=== PATIENT | female | born 1965 | race Caucasian/White ===

== ENCOUNTER 2016-10-20 20:30 | Emergency (ER) | payer OTHER ==
[~2016-10-20] VITALS: Ht 165.1 cm; Wt 90.7 kg
[~2016-10-20 20:30] MED LIST: ALBU2.5V14 NEB; ALBU8.5H6 INH; ALPR0.254 PO; ATROVENT HFA12.9 GM IH; BUDE10.2 IH; CETI10TA22 PO; ESOM40CA PO; FLUT1DIS5 IH; GABA-585 PO; GABA-586 PO; LEVO50TA PO; LINA145C PO; MOME17SP NS; MONT10TA6 PO; POLY17PO29 PO; nexium; singulair; synthroid; zyrtec
[2016-10-20 21:32] LABS: BILIRUBIN,URINE NEGATIVE (NEG); GLUCOSE,URINE NEGATIVE (NEG); NITRITE,URINE NEGATIVE (NEG); PROTEIN,URINE NEGATIVE (NEG-TRACE); UROBILINOGEN,URINE 0.2 mg/dL (0.2 mg/dL)
[2016-10-20 21:36] LABS: BASO % 0 % (0-3); EOS % 1 % (0-3); HEMATOCRIT 40.1 % (36.0-47.0); HEMOGLOBIN 13.7 g/dL (12.0-15.5); LYMPH # 1.8 x10^3/uL (1.0-4.8); LYMPH % 28 % (24-48); MEAN CORPUSCULAR HEMOGLOBIN 31 pg (25-35); MEAN CORPUSCULAR HGB CONC 34 g/dL (31-37); MEAN CORPUSCULAR VOLUME 92 fL (79-100); MONO % 8 % (0-9); NEUT % 62 % (31-73); PLATELET COUNT 269 x10^3/uL (140-400); RED BLOOD COUNT 4.37 x10^6/uL (3.50-5.40); RED CELL DISTRIBUTION WIDTH 12.8 % (11.5-14.5); WHITE BLOOD COUNT 6.4 x10^3/uL (4.0-11.0)
[2016-10-20 21:37] LABS: RBC,URINE 0 /HPF (0-2)
[2016-10-20 21:38] LABS: BACTERIA,URINE FEW /HPF (0-FEW); NEG OBC UR NEG; POS OBC UR POS; SQUAMOUS EPITHELIAL CELL,UR MOD /LPF; WBC,URINE 0 /HPF (0-4)
[2016-10-20] MEDS ORDERED: ONDANSETRON PF 4 MG/2 ML VIAL. IV ONE (21:45)
[2016-10-20] MEDS ORDERED: IV NORMAL SALINE 500ML BAG 500 ML IV ONE (21:45)
[2016-10-20 21:50] LABS: CALCIUM 9.3 mg/dL (8.5-10.1); GFR 58.9; POTASSIUM 3.7 mmol/L (3.5-5.1)
[2016-10-20 21:56] LABS: ALBUMIN 3.9 g/dL (3.4-5.0); TOTAL BILIRUBIN 0.3 mg/dL (0.2-1.0); TOTAL PROTEIN 7.8 g/dL (6.4-8.2)
[2016-10-20] MEDS ORDERED: IOHEXOL 300 MG/ML 75 ML VIAL IV ONE (22:00)
[2016-10-20] MEDS ORDERED: CONTRAST GIVEN MC PRN (22:15)
[2016-10-20] MEDS: MORPHINE SULFATE 4 MG/ML DISP.SYRIN. IV/SQ PRN ×2 (22:39→23:46)
--- NOTE | 2016-10-20 22:44 | RAD ---
CT abdomen and pelvis with contrast. TECHNIQUE: Helical CT imaging of the abdomen and pelvis was acquired with 60 mL Omnipaque 350 venous contrast. HISTORY: Upper abdominal pain. Prior appendectomy. Abdomen findings: Left lower lobe calcified granuloma. 6 mm left lower lobe pulmonary nodule image 7. Cholecystectomy. Several nonspecific subcentimeter hypodense liver lesions are present as well as larger lesions at the posterior right hepatic lobe segment 6 measuring 1.5 cm and superior hepatic lobe segment 8 measuring 1.1 cm which may be cysts given densities of under 20 units. Kidneys, adrenals, spleen, pancreas are unremarkable. Descending and sigmoid colon diverticulosis. A structure which appears to be the appendix is present and demonstrates no dilation or inflammation. No bowel obstruction or inflammation. No abdominal fluid or adenopathy. Bones unremarkable. Pelvis findings: Hysterectomy. Right ovary absent or atrophic. Left ovary demonstrates hypodense foci possibly cystic lesions largest anteriorly adjacent of the external vessels measures 3.2 cm. Bladder, rectum and bones are unremarkable. No pelvic fluid or adenopathy. IMPRESSION: 1. No acute process. 2. Left ovarian hypodensities largest measuring 3.2 cm could be follicles or cysts. This could be further characterized by sonography. 3. Liver hypodense lesions largest measuring 1.5 cm. These are indeterminate by CT imaging, may represent cysts. Correlation with outpatient sonography may be of benefit. 4. 6 mm left lower lobe pulmonary nodule. Follow-up CT imaging in 6-12 months may be of benefit per Fleischner Society 2017 guidelines. Exposure: One or more of the following individualized dose reduction techniques were utilized for this examination: 1. Automated exposure control 2. Adjustment of the mA and/or kV according to patient size 3. Use of iterative reconstruction technique Electronically signed by: El Elaine MD (10/20/2016 10:41 PM) [facility]
--- NOTE | 2016-10-21 00:31 | PHYS DOC ---
Past Medical History Past Medical History: Asthma, Constipation, Diverticulosis, Fibromyalgia, Migraines, Other Additional Past Medical Histor: ESPH SPASMS, gastroparesis, hiatial hernia, migraines Past Surgical History: Appendectomy, Cholecystectomy, Hysterectomy, Tubal ligation, Other Additional Past Surgical Histo: knee and shoulder surgery,ovarian cyst removal, sinal surgery,esophageal dil Alcohol Use: None Drug Use: None Adult General Chief Complaint Chief Complaint: FLANK PAIN HPI HPI Patient is a 51 year old female who presents with abdominal pain. Patient reports 4 day history of left lower quadrant pain now more severe in the left upper quadrant. She reports distention, increased gas, nausea without vomiting. Denies fevers or chills, hematemesis, diarrhea or constipation, hematochezia or melena, dysuria or hematuria, vaginal bleeding or discharge. Denies previous history of similar symptoms. History of gastroparesis, diverticulosis, hiatal hernia, esophageal spasms. She has undergone appendectomy, cholecystectomy, hysterectomy. [place] Seen by a nurse practitioner 2 days ago and given Flexeril for suspected muscle spasm, not improving. Review of Systems Review of Systems Constitutional: Denies fever or chills Eyes: Denies change in visual acuity HENT: Denies nasal congestion or sore throat Respiratory: Denies cough or shortness of breath Cardiovascular: Denies chest pain or edema GI: Reports abdominal pain, nausea, denies vomiting, bloody stools or diarrhea : Denies dysuria or hematuria Musculoskeletal: Denies back pain or joint pain Integument: Denies rash or skin lesions Neurologic: Denies headache, focal weakness or sensory changes Current Medications Current Medications Current Medications Medications (Trade) Dose Ordered Sig/Boogie Start Time Stop Time Status Last Admin Dose Admin Info (Do NOT chart on this entry -- for MONITORING) 1 each PRN DAILY PRN 10/20/16 22:15 10/21/16 02:13 DC Iohexol (Omnipaque 300 Mg/ml) 60 ml 1X ONCE 10/20/16 22:00 10/20/16 22:01 DC 10/20/16 22:10 60 ML Morphine Sulfate 4 mg PRN Q15MIN PRN 10/20/16 21:45 10/21/16 02:13 DC 10/20/16 23:46 4 MG Ondansetron HCl (Zofran) 4 mg 1X ONCE 10/20/16 21:45 10/20/16 21:46 DC 10/20/16 21:45 4 MG Sodium Chloride 500 ml @ 0 mls/hr 1X ONCE 10/20/16 21:45 10/20/16 21:46 DC 10/20/16 21:45 500 MLS/HR Allergies Allergies Allergies Coded Allergies Type Severity Reaction Last Updated Verified lisinopril Allergy Severe Anaphylaxis 04/02/13 Yes Penicillins Allergy Intermediate Rash 04/02/13 Yes tramadol Allergy Mild HYPERTENSION 04/02/13 Yes Physical Exam Physical Exam Constitutional: Obese, no acute distress, non-toxic appearance. HENT: Normocephalic, atraumatic, bilateral external ears normal, oropharynx moist, nose normal. Eyes: PERRLA, EOMI, conjunctiva normal, no discharge. Neck: supple, no stridor. Cardiovascular: RRR, no murmurs, no edema. Lungs & Thorax: LCTAB, no wheezing, no respiratory distress. Abdomen: soft, left upper quadrant tenderness without rebound or guarding, mild left lower quadrant tenderness without rebound or guarding, no right upper quadrant or right lower quadrant tenderness, no masses or pulsatile masses, nondistended. Skin: Warm, dry, no erythema, no rash. Back: No CVA tenderness. Extremities: No tenderness, no edema. Neurologic: Alert and oriented X 3, no focal deficits noted. Psychologic: Affect normal, judgement normal, mood normal. Current Patient Data Vital Signs Vital Signs Date Time Temp Pulse Resp B/P (MAP) Pulse Ox O2 Delivery O2 Flow Rate FiO2 10/21/16 01:41 82 130/74 (92) 96 Room Air 10/21/16 01:11 23 10/20/16 20:40 97.9 97.9 Lab Values Laboratory Tests Test 10/20/16 20:32 10/20/16 21:10 10/20/16 21:20 POC Urine HCG, Qualitative Hcg negative (Negative) White Blood Count 6.4 x10^3/uL (4.0-11.0) Red Blood Count 4.37 x10^6/uL (3.50-5.40) Hemoglobin 13.7 g/dL (12.0-15.5) Hematocrit 40.1 % (36.0-47.0) Mean Corpuscular Volume 92 fL (79-100) Mean Corpuscular Hemoglobin 31 pg (25-35) Mean Corpuscular Hemoglobin Concent 34 g/dL (31-37) Red Cell Distribution Width 12.8 % (11.5-14.5) Platelet Count 269 x10^3/uL (140-400) Neutrophils (%) (Auto) 62 % (31-73) Lymphocytes (%) (Auto) 28 % (24-48) Monocytes (%) (Auto) 8 % (0-9) Eosinophils (%) (Auto) 1 % (0-3) Basophils (%) (Auto) 0 % (0-3) Neutrophils # (Auto) 4.0 x10^3uL (1.8-7.7) Lymphocytes # (Auto) 1.8 x10^3/uL (1.0-4.8) Monocytes # (Auto) 0.5 x10^3/uL (0.0-1.1) Eosinophils # (Auto) 0.1 x10^3/uL (0.0-0.7) Basophils # (Auto) 0.0 x10^3/uL (0.0-0.2) Sodium Level 139 mmol/L (136-145) Potassium Level 3.7 mmol/L (3.5-5.1) Chloride Level 103 mmol/L (98-107) Carbon Dioxide Level 30 mmol/L (21-32) Anion Gap 6 (6-14) Blood Urea Nitrogen 8 mg/dL (7-20) Creatinine 1.0 mg/dL (0.6-1.0) Estimated GFR (Cockcroft-Gault) 58.9 BUN/Creatinine Ratio 8 (6-20) Glucose Level 93 mg/dL (70-99) Calcium Level 9.3 mg/dL (8.5-10.1) Total Bilirubin 0.3 mg/dL (0.2-1.0) Aspartate Amino Transferase (AST) 19 U/L (15-37) Alanine Aminotransferase (ALT) 20 U/L (14-59) Alkaline Phosphatase 91 U/L (46-116) Troponin I Quantitative < 0.017 ng/mL (0.000-0.055) Total Protein 7.8 g/dL (6.4-8.2) Albumin 3.9 g/dL (3.4-5.0) Albumin/Globulin Ratio 1.0 (1.0-1.7) Lipase 128 U/L (73-393) Urine Collection Type Unknown Urine Color Straw Urine Clarity Clear Urine pH 7.0 Urine Specific [place] <=1.005 Urine Protein Negative mg/dL (NEG-TRACE) Urine Glucose (UA) Negative mg/dL (NEG) Urine Ketones (Stick) Negative mg/dL (NEG) Urine Blood Negative (NEG) Urine Nitrite Negative (NEG) Urine Bilirubin Negative (NEG) Urine Urobilinogen Dipstick 0.2 mg/dL (0.2 mg/dL) Urine Leukocyte Esterase Negative (NEG) Urine RBC 0 /HPF (0-2) Urine WBC 0 /HPF (0-4) Urine Squamous Epithelial Cells Mod /LPF Urine Bacteria Few /HPF (0-FEW) Urine Test Negative (NEG) Laboratory Tests 10/20/16 21:10 Laboratory Tests 10/20/16 21:10 EKG EKG Interpreted by me: Normal sinus rhythm rate 82, no acute ST or T wave changes, normal intervals, no ectopy. [] Radiology/Procedures Radiology/Procedures PROCEDURE: PELVIS W/TV Pelvic ultrasound HISTORY: Left pelvic pain, abnormal CT with left adnexal lesions. TECHNIQUE: Transabdominal and transvaginal transducers with grayscale and duplex Doppler sonography were utilized. FINDINGS: Transabdominal imaging of trace hysterectomy. Ovaries not visualized transabdominal. Transvaginal imaging demonstrates hysterectomy. No pelvic fluid documented. Right ovary not visualized may be obscured by bowel gas shadowing or surgically absent. Structure labeled left ovary measured as 2.6 x 2.2 x 2.2 cm demonstrating a 1.9 cm unilocular cyst with a thin internal septation. Intact left ovarian blood flow documented. The exophytic possible cystic lesion adjacent of the left ovary on prior CT imaging is not documented sonographically. IMPRESSION: Hysterectomy. Right ovary not visualized. Left ovary demonstrates a 1.9 cm cyst with single thin internal septation may be a follicular cyst or chronic hemorrhagic cyst. The possible paraovarian 3 cm hypodense lesion on prior CT imaging is not evident sonographically could be obscured by bowel gas shadowing from adjacent bowel loops. Electronically signed by: El Elaine MD (10/21/2016 1:49 AM) [facility] DICTATED and SIGNED BY: EL ELAINE MD DATE: 10/21/16 0146 PROCEDURE: CT ABD PELV W/ IV CONTRST ONLY CT abdomen and pelvis with contrast. TECHNIQUE: Helical CT imaging of the abdomen and pelvis was acquired with 60 mL Omnipaque 350 venous contrast. HISTORY: Upper abdominal pain. Prior appendectomy. Abdomen findings: Left lower lobe calcified granuloma. 6 mm left lower lobe pulmonary nodule image 7. Cholecystectomy. Several nonspecific subcentimeter hypodense liver lesions are present as well as larger lesions at the posterior right hepatic lobe segment 6 measuring 1.5 cm and superior hepatic lobe segment 8 measuring 1.1 cm which may be cysts given densities of under 20 units. Kidneys, adrenals, spleen, pancreas are unremarkable. Descending and sigmoid colon diverticulosis. A structure which appears to be the appendix is present and demonstrates no dilation or inflammation. No bowel obstruction or inflammation. No abdominal fluid or adenopathy. Bones unremarkable. Pelvis findings: Hysterectomy. Right ovary absent or atrophic. Left ovary demonstrates hypodense foci possibly cystic lesions largest anteriorly adjacent of the external vessels measures 3.2 cm. Bladder, rectum and bones are unremarkable. No pelvic fluid or adenopathy. IMPRESSION: 1. No acute process. 2. Left ovarian hypodensities largest measuring 3.2 cm could be follicles or cysts. This could be further characterized by sonography. 3. Liver hypodense lesions largest measuring 1.5 cm. These are indeterminate by CT imaging, may represent cysts. Correlation with outpatient sonography may be of benefit. 4. 6 mm left lower lobe pulmonary nodule. Follow-up CT imaging in 6-12 months may be of benefit per Fleischner Society 2017 guidelines. Exposure: One or more of the following individualized dose reduction techniques were utilized for this examination: 1. Automated exposure control 2. Adjustment of the mA and/or kV according to patient size 3. Use of iterative reconstruction technique Electronically signed by: El Elaine MD (10/20/2016 10:41 PM) [facility] DICTATED and SIGNED BY: EL ELAINE MD DATE: 10/20/162219[] Course & Med Decision Making Course & Med Decision Making Pertinent Labs and Imaging studies reviewed. (See chart for details) the patient visits with abdominal pain. Gave IV fluids, pain medication, antiemetics. No significant abnormality on labs. CT shows ovarian cyst. Discussed other abnormal findings with the patient. Obtained ultrasound which shows no evidence of ovarian torsion. Recommend rest, by mouth hydration, Zofran , Calera for severe pain. Follow-up with primary care physician in 2-3 days. Return to the emergency department for high fever, severe pain, uncontrolled vomiting, any otherwise worsening condition. Discharged home in stable and improved condition. Dragon Disclaimer Dragon Disclaimer This electronic medical record was generated, in whole or in part, using a voice recognition dictation system. Departure Departure Impression: Primary Impression: Abdominal pain Additional Impression: Ovarian cyst Disposition: HOME, SELF-CARE Condition: STABLE Referrals: NO PCP (PCP) Patient Instructions: Abdominal Pain, [id number], Ovarian Cyst, [id number] Additional Instructions: You were seen in the emergency department today for abdominal pain. You had an ovarian cyst which could be the cause of your pain. There were other abnormal findings on the CT including spots on the liver and a lung nodule. It is important to follow-up with her primary care doctor for further testing. Please drink fluids to stay hydrated, take Calera for severe pain, use Zofran for nausea. Follow-up with primary care physician in 2-3 days. Return to the emergency department for high fever, severe pain, uncontrolled vomiting, any otherwise worsening condition. Scripts Ondansetron (ZOFRAN ODT) 4 Mg Tab.rapdis 1 TAB SL Q8HRS, #10 TAB Prov: IRINEO ALEXANDER MD 10/21/16 Hydrocodone/Apap 5-325 (NORCO 5-325 TABLET) 1 Each Tablet 1 TAB PO PRN Q6HRS Y for PAIN, #10 TAB 0 Refills Prov: IRINEO ALEXANDER MD 10/21/16 Problem Qualifiers IRINEO ALEXANDER MD Oct 21, 2016 00:30
[2016-10-21] MEDS ORDERED: ONDA4TAB10 SL (01:04)
[2016-10-21] MEDS ORDERED: HYDR-971 PO (01:04)
[2016-10-21 01:41] VITALS: BP 130/74
--- NOTE | 2016-10-21 01:52 | RAD ---
Pelvic ultrasound HISTORY: Left pelvic pain, abnormal CT with left adnexal lesions. TECHNIQUE: Transabdominal and transvaginal transducers with grayscale and duplex Doppler sonography were utilized. FINDINGS: Transabdominal imaging of trace hysterectomy. Ovaries not visualized transabdominal. Transvaginal imaging demonstrates hysterectomy. No pelvic fluid documented. Right ovary not visualized may be obscured by bowel gas shadowing or surgically absent. Structure labeled left ovary measured as 2.6 x 2.2 x 2.2 cm demonstrating a 1.9 cm unilocular cyst with a thin internal septation. Intact left ovarian blood flow documented. The exophytic possible cystic lesion adjacent of the left ovary on prior CT imaging is not documented sonographically. IMPRESSION: Hysterectomy. Right ovary not visualized. Left ovary demonstrates a 1.9 cm cyst with single thin internal septation may be a follicular cyst or chronic hemorrhagic cyst. The possible paraovarian 3 cm hypodense lesion on prior CT imaging is not evident sonographically could be obscured by bowel gas shadowing from adjacent bowel loops. Electronically signed by: El Elaine MD (10/21/2016 1:49 AM) [facility]
--- NOTE | 2016-10-21 06:37 | EKG ---
[facility] [address] [place] [address] Test Date: 2016-10-20 Test Time: 22:16:36 Pat Name: NISHI SILVA Department: Room: Gender: F Reference Assistant: : 1965 Requested By: IRINEO ALEXANDER Order Number: [id number] Reading MD: Bienvenido Borrero Measurements Intervals [place] Rate: 82 P: 68 VA: 198 QRS: 72 QRSD: 80 T: 51 QT: 372 QTc: 438 Interpretive Statements SINUS RHYTHM QRS(T) CONTOUR ABNORMALITY CONSIDER ANTEROLATERAL MYOCARDIAL DAMAGE RI6.01 Unconfirmed report Compared to ECG 12/05/2015 10:43:19 No significant changes Electronically Signed On 10-21-2016 17:40:24 CDT by Bienvenido Borrero
[2016-10-22] MEDS ORDERED: IBUP-1027 PO (16:14)
[2016-10-22] MEDS ORDERED: TOPI25TA52 PO (16:14)
== END 2016-10-21 02:12 | disposition home or self-care (01) ==
LOC: ER 20:30
DX: N83.201 Unspecified ovarian cyst, right side (principal); J45.909 Unspecified asthma, uncomplicated; G43.909 Migraine, unspecified, not intractable, without status migrainosus; M79.7 Fibromyalgia; Z98.51 Tubal ligation status; Z90.49 Acquired absence of other specified parts of digestive tract; Z90.710 Acquired absence of both cervix and uterus; Z88.0 Allergy status to penicillin; Z88.6 Allergy status to analgesic agent; Z88.8 Allergy status to other drugs, medicaments and biological substances
CPT/HCPCS: 36415; 74177; 76830; 76856; 80053; 81001; 81025; 83690; 84484; 85027; 93005; 96361; 96374; 96375; 96376; 99285; J2270; J2405; J7040; Q9967

== ENCOUNTER 2020-02-17 05:02 | Emergency (ER) | payer OTHER ==
[~2020-02-17] VITALS: Ht 165.1 cm; Wt 97.7 kg
[~2020-02-17 05:02] MED LIST changes: -CETI10TA22 PO; +CETI10TA74 PO; -GABA-586 PO; +GABA300C18 PO; +HYDR-3164 PO; +IBUP-1027 PO; -LINA145C PO; +LINZESS145 MCG PO; +MONT10TA49 PO; -MONT10TA6 PO; +ONDA4TAB10 SL; +TOPI25TA52 PO
[2020-02-17] MEDS ORDERED: ASPIRIN CHEWABLE 81 MG TABLET. PO ONE (05:30)
[2020-02-17 05:36] LABS: BASO % 1 % (0-3); EOS # 0.1 x10^3/uL (0.0-0.7); EOS % 1 % (0-3); HEMATOCRIT 39.6 % (36.0-47.0); HEMOGLOBIN 13.7 g/dL (12.0-15.5); LYMPH % 30 % (24-48); MEAN CORPUSCULAR HEMOGLOBIN 32 pg (25-35); MEAN CORPUSCULAR HGB CONC 35 g/dL (31-37); MEAN CORPUSCULAR VOLUME 91 fL (79-100); MONO # 0.5 x10^3/uL (0.0-1.1); MONO % 8 % (0-9); NEUT # 3.8 x10^3/uL (1.8-7.7); NEUT % 60 % (31-73); PLATELET COUNT 250 x10^3/uL (140-400); RED BLOOD COUNT 4.36 x10^6/uL (3.50-5.40); RED CELL DISTRIBUTION WIDTH 12.3 % (11.5-14.5); WHITE BLOOD COUNT 6.4 x10^3/uL (4.0-11.0)
--- NOTE | 2020-02-17 05:45 | RAD ---
EXAMINATION: CHEST AP ONLY CLINICAL HISTORY: Chest pain, palpitations EXAM DATE/TIME: 02/17/2020 5:23 AM COMPARISON: None FINDINGS: Lines, Tubes, and Devices: None. Cardiomediastinal Silhouette: Within normal limits. Lungs and Pleura: No evidence of focal airspace consolidation or pleural effusion. Pulmonary vasculature unremarkable. Bones and Soft Tissues: No acute osseous abnormality. IMPRESSION: No evidence of acute cardiopulmonary abnormality. Electronically signed by: Luis Angel Griffiths DO (02/17/2020 5:42 AM) [facility]
[2020-02-17 05:47] LABS: CALCIUM 9.3 mg/dL (8.5-10.1); CREATININE 1.1 mg/dL (0.6-1.0); GFR 52.2; POTASSIUM 3.7 mmol/L (3.5-5.1)
--- NOTE | 2020-02-17 05:48 | PHYS DOC ---
Past Medical History Past Medical History: Asthma, Constipation, Diverticulosis, Fibromyalgia, Migraines, Other Additional Past Medical Histor: ESPH SPASMS, gastroparesis, hiatial hernia, migraines (JOSTIN PFEIFFER DO) Past Surgical History: Cholecystectomy, Hysterectomy, Tubal ligation, Other Additional Past Surgical Histo: knee and shoulder surgery,ovarian cyst removal,sinal surgery,esophageal dil (JOSTIN PFEIFFER DO) Smoking Status: Never Smoker Alcohol Use: None Drug Use: None (JOSTIN PFEIFFER DO) General Adult EDM: Chief Complaint: CHEST PAIN-CARDIAC NATURE HPI: HPI: Patient is a 54 year [id number] female past medical history asthma hypothyroid PVCs presents with a chief complaint of chest pain. Patient states chest pain woke her up from her sleep approximately 2 to 3 hours ago. She describes the pain as a squeezing tightness sensation that had some radiation down her left arm. Patient states pain comes and goes. Patient states she has had associated belching but denies any nausea vomiting diaphoresis or shortness of breath. Patient does have history of PVCs which is associated with chest discomfort. Patient has evaluated by cardiology and was placed on metoprolol for her palpitations. Patient states metoprolol it usually resolves her chest discomfort. This a.m. patient took her metoprolol states she had no relief. She states this chest discomfort is different than her PVC chest pain. EKG performed shows sinus rhythm. (JOSTIN PFEIFFER DO) Review of Systems: Review of Systems: Constitutional: Denies fever or chills. [] Eyes: Denies change in visual acuity. [] HENT: Denies nasal congestion or sore throat. [] Respiratory: Denies cough or shortness of breath. [] Cardiovascular: positive chest pain GI: Denies abdominal pain, nausea, vomiting, bloody stools or diarrhea. [] : Denies dysuria. [] Musculoskeletal: Denies back pain or joint pain. [] Integument: Denies rash. [] Neurologic: Denies headache, focal weakness or sensory changes. [] Endocrine: Denies polyuria or polydipsia. [] Lymphatic: Denies swollen glands. [] Psychiatric: Denies depression or anxiety. [] (JOSTIN PFEIFFER DO) Heart Score: HEART Score for Chest Pain: HEART Score for Chest Pain Response (Comments) Value History Moderately Suspicious 1 ECG Normal 0 Age >45 - < 65 1 Risk Factors No Risk Factors 0 Troponin < Normal Limit 0 Total 2 Risk Factors: Risk Factors: DM, Current or recent (<one month) smoker, HTN, HLP, family history of CAD, obesity. Risk Scores: Score 0 - 3: 2.5% MACE over next 6 weeks - Discharge Home Score 4 - 6: 20.3% MACE over next 6 weeks - Admit for Clinical Observation Score 7 - 10: 72.7% MACE over next 6 weeks - Early Invasive Strategies (JOSTIN PFEIFFER DO) Current Medications: Current Medications Medications (Trade) Dose Ordered Sig/Boogie Start Time Stop Time Status Last Admin Dose Admin Aspirin (Aspirin Chewable) 324 mg 1X ONCE 02/17/20 05:30 02/17/20 05:31 DC (JOSTIN PFEIFFER DO) Allergies: Allergies: Allergies Coded Allergies Type Severity Reaction Last Updated Verified lisinopril Allergy Severe Anaphylaxis 04/02/13 Yes Penicillins Allergy Intermediate Rash 04/02/13 Yes Sulfa (Sulfonamide Antibiotics) Allergy Intermediate 02/17/20 Yes tramadol Allergy Mild HYPERTENSION 04/02/13 Yes (JOSTIN PFEIFFER DO) Physical Exam: PE: General: alert, no acute distress. Skin: warm, dry and intact. Head:: Normocephalic, atraumatic. Neck: Trachea midline. Eyes: EOMI, Normal conjunctiva, No drainage CARDIOVASCULAR: Regular rate and rhythm RESPIRATORY: No respiratory distress Back: Full range of motion. MUSCULOSKELETAL: Full range of motion of bilateral upper and lower extremities. GASTROINTESTINAL: Abdomen soft without rebound or guarding. NEUROLOGICAL: Alert and noted to person, place and time. No neurological deficits observed Psychiatric: Cooperative. Normal judgment (JOSTIN PFEIFFER DO) Current Patient Data: Labs: Laboratory Tests Test 02/17/20 05:21 White Blood Count 6.4 x10^3/uL (4.0-11.0) Red Blood Count 4.36 x10^6/uL (3.50-5.40) Hemoglobin 13.7 g/dL (12.0-15.5) Hematocrit 39.6 % (36.0-47.0) Mean Corpuscular Volume 91 fL (79-100) Mean Corpuscular Hemoglobin 32 pg (25-35) Mean Corpuscular Hemoglobin Concent 35 g/dL (31-37) Red Cell Distribution Width 12.3 % (11.5-14.5) Platelet Count 250 x10^3/uL (140-400) Neutrophils (%) (Auto) 60 % (31-73) Lymphocytes (%) (Auto) 30 % (24-48) Monocytes (%) (Auto) 8 % (0-9) Eosinophils (%) (Auto) 1 % (0-3) Basophils (%) (Auto) 1 % (0-3) Neutrophils # (Auto) 3.8 x10^3/uL (1.8-7.7) Lymphocytes # (Auto) 2.0 x10^3/uL (1.0-4.8) Monocytes # (Auto) 0.5 x10^3/uL (0.0-1.1) Eosinophils # (Auto) 0.1 x10^3/uL (0.0-0.7) Basophils # (Auto) 0.0 x10^3/uL (0.0-0.2) Laboratory Tests 02/17/20 05:21 (JOSTIN PFEIFFER DO) EKG: EKG: EKG 0506 heart rate 68 normal sinus rhythm no ST elevation no ST depression no acute PR No acute change when compared to previous [] (JOSTIN PFEIFFER DO) Radiology/Procedures: Radiology/Procedures: [] Impression: FINDINGS: Lines, Tubes, and Devices: None. Cardiomediastinal Silhouette: Within normal limits. Lungs and Pleura: No evidence of focal airspace consolidation or pleural effusion. Pulmonary vasculature unremarkable. Bones and Soft Tissues: No acute osseous abnormality. IMPRESSION: No evidence of acute cardiopulmonary abnormality. Electronically signed by: Luis Angel Griffiths DO (02/17/2020 5:42 AM) [facility] (JOSTIN PFEIFFER DO) Course & Med Decision Making: Course & Med Decision Making Pertinent Labs and Imaging studies reviewed. (See chart for details) [] Patient was evaluated for chief complaint. Work-up consisted of laboratory analysis radiologic imaging and EKG. Results reviewed and discussed with patient. EKG without acute ischemic changes. Chest x-ray within normal limits. Initial trop normal. Treatment with aspirin and nitroglycerin at 0600hrs. Patient with a heart score of 2. Discussed hospitalization verse discharge home after repeat trop-- if pain improved post treatment. Patient would like to discuss options with . Discussed benefits of hospitalization- risks of discharge home. 0620hrs- Patient and --- would like repeat troponin which has been ordered for 0800hrs. Decision for admission vs discharge at that time. Patient signed out to Dr Gutierrez @ 0620hrs pending Re-evaluation, repeat trop, and patients decision. (JOSTIN PFEIFFER DO) Course & Med Decision Making Assumed care of patient at checkout. Delta troponin is negative. I had a long discussion with them about the pros and cons of discharge versus admission. At this time they would like to go home and come back if the symptoms return. Patient's test results and vitals while in the ED were fully reviewed and discussed with the patient. Patient is stable and at this time does not need admission to the hospital. We have discussed strict return precautions and the importance of following up with their Primary Care Physician. Patient stated understanding and was given an opportunity to ask any questions. Patient is in agreement with plan. (DION GUTIERREZ MD) Dragon Disclaimer: Dragon Disclaimer: This electronic medical record was generated, in whole or in part, using a voice recognition dictation system. (JOSTIN PFEIFFER DO) Departure Departure Impression: Primary Impression: Chest pain Disposition: 01 DC HOME SELF CARE/HOMELESS Condition: STABLE Referrals: NO PCP (PCP) Patient Instructions: Chest Pain (Nonspecific) JOSTIN PFEIFFER DO Feb 17, 2020 05:48 DION GUTIERREZ MD Feb 17, 2020 10:06
[2020-02-17 05:54] LABS: ALBUMIN 3.6 g/dL (3.4-5.0); ALBUMIN/GLOBULIN RATIO 1.1 (1.0-1.7); TOTAL BILIRUBIN 0.3 mg/dL (0.2-1.0)
[2020-02-17] MEDS ORDERED: NITROGLYCERIN SUBLINGUAL 0.4 MG BOTTLE OF 25. SL PRN (06:00)
[2020-02-17 09:36] VITALS: BP 163/93
--- NOTE | 2020-02-18 09:31 | EKG ---
[facility] [address] [place] [address] Test Date: 2020-02-17 Test Time: 05:06:54 Pat Name: NISHI SILVA Department: Room: Gender: F Director [employer]: : 1965 Requested By: JOSTIN PFEIFFER Order Number: [id number] Reading MD: Measurements Intervals [place] Rate: 68 P: 68 TN: 196 QRS: 70 QRSD: 78 T: 52 QT: 394 QTc: 424 Interpretive Statements SINUS RHYTHM NORMAL ECG RI6.02 No previous ECG available for comparison
== END 2020-02-17 10:19 | disposition home or self-care (01) ==
LOC: ER 05:02
DX: R07.89 Other chest pain (principal); J45.909 Unspecified asthma, uncomplicated; G43.909 Migraine, unspecified, not intractable, without status migrainosus; E03.9 Hypothyroidism, unspecified; Z88.0 Allergy status to penicillin; Z88.2 Allergy status to sulfonamides; Z88.6 Allergy status to analgesic agent; Z88.8 Allergy status to other drugs, medicaments and biological substances
CPT/HCPCS: 36415; 71045; 80053; 84484; 85025; 93005; 99285